=== PATIENT | male | born 1990 | race Caucasian/White ===

== ENCOUNTER 2018-12-18 17:06 | Emergency (ER) | payer OTHER, SELFPAY ==
[2018-12-18 17:08] VITALS: BP 129/72; PULSE 87; RESP 16; TEMP 37.3; O2SAT 96; BMI 23.6
[2018-12-18 17:35] VITALS: BP 129/72; PULSE 87; RESP 16; TEMP 37.3; O2SAT 96
--- NOTE | 2018-12-18 18:00 | CT_ITS ---
STUDY: CT ABDOMEN AND PELVIS WITH CONTRAST REASON FOR EXAM: Male, 28 years old. Right lower quadrant pain. RADIATION DOSAGE (If Supplied By Facility): CTDIvol = ( 10.17 ) mGy, DLP = ( 508.20 ) mGycm TECHNIQUE: Transaxial images were obtained from the dome of the diaphragm to the symphysis pubis without oral contrast. 100ML IV/Oral Isovue 300 was administered. Sagittal and coronal images were reconstructed. Individualized dose optimization techniques were used for this CT. COMPARISON: None. FINDINGS: The visualized lung bases are unremarkable. The visualized portions of the heart are within normal limits. There is a well-circumscribed 8.5 mm fat-containing round focus along the liver capsule within the right hepatic lobe that may reflect underlying lipoma. Normal gallbladder and extrahepatic biliary system. Normal spleen. Normal pancreas. Normal bilateral adrenal glands. Normal right kidney. Normal left kidney. There is a small hiatal hernia. There is circumferential wall thickening of the terminal ileum and cecum. There appears to be a diverticulum arising from the cecum. There is associated free fluid within the paracolic gutter and pelvis. There are prominent lymph nodes within the adjacent mesentery. The appendix is visualized and appears normal. Normal abdominal aorta. Normal inferior vena cava. Normal retroperitoneum. Normal urinary bladder. Normal abdominal wall. Normal osseous structures. CT/Abdomen/Pelvis WITH Contrast IMPRESSION: Circumferential wall thickening of the cecum and terminal ileum which may be secondary to inflammatory bowel disease or an infectious process, alternatively this may be secondary to possible cecal diverticulitis. Hiatal hernia. Electronically Signed: Charley Farmer MD at 20:24 EDT Tel , Service support ,
--- NOTE | 2018-12-18 18:18 | ED.DCSUM_ITS ---
- ER Visit Summary Date of Service: 12/18/18 Chief Complaint: Right lower quadrant abdominal pain History of Present Illness: The patient is a 28 M who presents with right lower quadrant abdominal pain that has been getting worse over the past 5 days. Patient states the pain is sharp and burning. Patient states pain is localized to the right lower quadrant. Patient states pain is worse with movement. Patient admits to nausea and vomiting but states he still has a good appetite. Patient admits to some diarrhea but denies any melena or hematochezia. Patient denies any urinary complaints. Patient denies any chest pain or shortness of breath. Physical Examination: Vital signs are stable. Patient is afebrile. Patient is in no acute distress. Oral mucosa is pink and moist. Neck is supple. Trachea is midline. There is no JVD noted. Heart was regular rate and rhythm. Lungs are clear and equal bilateral. Abdomen is soft. Bowel sounds are normal. There is some right lower quadrant tenderness. There is no rebound or guarding noted. There is some mild left lower quadrant tenderness as well. Cranial nerves II through XII are intact. There are no focal motor or sensory deficits noted. Test Results: CBC showed a leukocytosis of 18.4. Comprehensive metabolic profile was essentially within normal limits. CT scan of the abdomen and pelvis was obtained. There is wall thickening of the cecum that could be inflammatory versus infectious. Cecal diverticulitis is also a consideration. This was interpreted by the radiologist. The appendix was visualized and was normal. Emergency Department Course and Treatment: Patient was given his first dose of Cipro and Flagyl here. Patient was given a dose of morphine here and IV fluids. Patient was given prescriptions for Cipro and Flagyl. Patient was instructed to eat a bland diet. Patient was instructed to follow-up with his primary care physician in 5 to 7 days. Patient was instructed that he may need to be referred to a refrigeration installer for possible colonoscopy. Patient understood and was agreeable with the plan. All questions were answered. Disposition: Discharge home Impression: Right lower quadrant abdominal pain This note was generated with [employer] dictation software. It may contain incorrect words, spelling, and punctuation that were not noted in review of the chart prior to signing ED Disposition - Plan for ED Patient: Disposition: Home or Assisted Living Diagnosis: Right lower quadrant abdominal pain Instructions: ED Inflam Bowel Disease Crohn Prescriptions: Ciprofloxacin [Cipro] 500 mg PO BID #20 tab Metronidazole [Flagyl] 500 mg PO Q6H #40 tab Referrals: Care Physician,No Primary [Primary Care Provider] - 5-7 Days
[2018-12-18] MEDS: 0.9% Normal Saline 1,000 ML 1000 ML IV (18:28)
[2018-12-18] MEDS: Ondansetron 4 MG/2 ML Vial IV (18:28)
[2018-12-18 18:33] VITALS: TEMP 37.3
[2018-12-18 18:36] LABS: Red Blood Cells-Urine 0 SEEN /hpf (0-5)
[2018-12-18 18:42] LABS: Color, Urine Yellow (Yellow); Glucose, Dipstick Normal (Normal); Leukocyte Esterase-Dipstick 25 /ul (Negative); Nitrite-Dipstick Negative (Negative); Occult Blood-Urine 25 /ul (Negative); Protein-Dipstick 30 mg/dl (Negative); Specific Gravity, Urine 1.025 (1.002-1.030); Urine Clarity Clear (Clear); Urine Urobilinogen 1 mg/dl (Normal)
[2018-12-18 18:46] VITALS: BP 134/69; PULSE 68; RESP 15; TEMP 37.1; O2SAT 98
[2018-12-18 18:51] LABS: Absolute Lymphocyte Count 2.12 X10^3/ul (0.83-4.51); Absolute Neutrophil Count 13.9 X10^3/uL (2.0-7.7); Basophil# 0.02 X10^3/uL; Basophil% 0.1 % (0-1); Differential Indicated SCAN CRITERIA MET; Eosinophil# 0.17 X10^3/uL; Eosinophils% 0.9 % (0-5); Hematocrit 46.2 % (40-54); Hemoglobin 15.4 g/dl (13.0-16.5); Lymphocyte # 2.12 X10^3/ul (4.0); Lymphocyte % 11.5 % (19-41); Mean Corp Hgb Conc 33.3 g/gl (32-36); Mean Corpuscular Hgb 28.9 pg (27.0-32.0); Mean Corpuscular Volume 86.8 fL (80-94); Mean Platelet Vol. 10.9 fl (6.2-12.0); Monocyte# 2.12 X10^3/uL; Monocyte% 11.5 % (0-10); Neutrophil # 13.92 X10^3/uL (2.7-7.7); Neutrophil % 75.8 % (47-70); POSITIVE COUNT NO; POSITIVE DIFFERENTIAL YES; POSITIVE MORPHOLOGY NO; Platelet Count 190 K/mm3 (150-450); RBC Distribution Width CV 13.3 % (11.6-14.6); RBC Distribution Width SD 42.5 fl (35.1-43.9); Red Blood Count 5.32 M/mm3 (4.6-6.2); White Blood Count 18.4 K/mm3 (4.4-11.0)
[2018-12-18 18:57] LABS: ALB/GLOB Ratio 1.3 RATIO (0.9-2.4); AST(SGOT) 11 U/L (15-37); Alanine Aminotransfer ALT/SGPT 13 U/L (16-61); Albumin, Serum 4.3 g/dL (3.2-5.0); Alkaline Phosphatase 105 U/L (45-117); Anion Gap 7 (5-15); BUN 11 mg/dL (7-18); BUN/Creat Ratio 12.3 RATIO (10-20); Calcium,Total 9.3 mg/dL (8.5-10.1); Chloride 103 mmol/L (98-107); Creatinine, Serum 0.89 mg/dL (0.70-1.30); EST Glomerular Filtration Rate 108 mL/min (>60); Est Glom Filt Rate - Afr Amer 131 mL/min (>60); Estimated Creatinine Clearance 124.67 ml/min; Globulin 3.4 g/dL (2.2-4.2); Glucose 87 mg/dL (74-106); Lipase 58 U/L (73-393); Potassium 3.6 mmol/L (3.5-5.1); Protein, Total 7.7 g/dL (6.4-8.2); Sodium Level 138 mmol/L (136-145)
[2018-12-18 19:03] LABS: Ketone-Dipstick 150 mg/dl (Negative); Urine Bilirubin Dipstick 1 mg/dL (Negative)
--- NOTE | 2018-12-18 19:04 | ED.RN ---
DR. FRITZ MADE AWARE OF PATIENT'S URINE SHOWING KETONES AT 150.
[2018-12-18 19:07] LABS: Bacteria 2+ /hpf (None Seen); Mucous, Urine 4+ /hpf (<or=2+); Squamous Epithelial Cells - UA 0-5 SEEN /hpf (0-5); White Blood Cells 0-5 SEEN /hpf (0-5)
[2018-12-18 19:51] LABS: Differential Comment SCANNED
[2018-12-18 20:01] VITALS: BP 132/77; PULSE 70; RESP 18; TEMP 36.7; O2SAT 98
[2018-12-18] MEDS: Morphine 4 MG/ML Syringe IV (21:33)
[2018-12-18] MEDS: metroNIDAZOLE 500 MG Tablet PO (21:34)
[2018-12-18] MEDS: Ciprofloxacin 500 MG Tablet PO (21:34)
[2018-12-19 14:39] LABS: Pathologist Review Reviewed
== END 2018-12-18 21:47 | disposition home or self-care (01) ==
PROVIDERS: Emergency Provider Emergency Medicine
DX: R10.31 Right lower quadrant pain (principal); F17.210 Nicotine dependence, cigarettes, uncomplicated
CPT/HCPCS: 74177; 80053; 81001; 83690; 85025; 96361; 96374; 96375; 99284; J7030; Q9967; J2405

== ENCOUNTER → 2020-03-19 16:00 | Outpatient (CLI) | payer OTHER, SELFPAY ==
--- NOTE | 2020-03-19 | LES_PTH ---
PATIENT: ASHLEY MILLER LOC: [facility] U#:[id number] AGE/SX: 35/M ROOM: RE03/19/[address]: Dr. 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 SJ:yusra 03/23/20 COMMENT Case has been reviewed in consultation with Dr. Jeffery who concurs with the above diagnosis. IDC:AM MICROSCOPIC DESCRIPTION Slides are reviewed. GROSS DESCRIPTION Received is one container labeled with the patient's name and not further designated. The specimen consists of a fragment of mariano-brown skin measuring 0.2 x 0.1 x 0.1 cm. The specimen is totally submitted in one cassette. / SJ:yusra 03/22/20 TC:1 CPT: 29766
== END ==
PROVIDERS: PCP Family Medicine; Referring Provider Family Medicine; Visit Provider Family Medicine
DX: L98.8 Other specified disorders of the skin and subcutaneous tissue (principal)
CPT/HCPCS: 88305